=== PATIENT | female | born 1995 | race Caucasian/White ===

== ENCOUNTER 2017-08-25 08:52 | Emergency (ER) | payer MEDICAID ==
[~2017-08-25] VITALS: Ht 162.6 cm; Wt 73.8 kg
[2017-08-25 08:54] VITALS: BP 115/76
[2017-08-25] MEDS ORDERED: HYDROcodone/APAP 5/325 TABLET ONE (09:40)
[2017-08-25] MEDS ORDERED: HYDROcodone/APAP 5/325 TABLET PO ONE (10:00)
== END 2017-08-25 09:54 | disposition home or self-care (01) ==
LOC: ED 09:47
DX: H60.501 Unspecified acute noninfective otitis externa, right ear (principal)
CPT/HCPCS: 99283

== ENCOUNTER 2017-08-27 14:49 | Outpatient (CLI) | payer MEDICAID ==
[~2017-08-27] VITALS: Ht 162.6 cm; Wt 73.6 kg
[2017-08-27 15:31] LABS: MICROSCOPIC INDICATED
== END 2017-08-27 16:42 | disposition home or self-care (01) ==
LOC: LDOP 14:49
PROVIDERS: ATTEND Obstetrics & Gynecology
DX: O26.893 Other specified pregnancy related conditions, third trimester (principal); R10.9 Unspecified abdominal pain; Z3A.33 33 weeks gestation of pregnancy
CPT/HCPCS: 59025; 81001; 87086; 99201; G0463

== ENCOUNTER 2017-08-28 20:18 | Emergency (ER) | payer MEDICAID ==
[~2017-08-28] VITALS: Ht 162.6 cm; Wt 73.6 kg
[2017-08-28 21:11] VITALS: BP 116/69
[2017-08-28 21:32] LABS: MEAN CORPUSCULAR HEMOGLOBIN 21.9 pg (27.0-34.8); MEAN CORPUSCULAR HGB CONC 31.4 g/dL (32.4-35.8); MEAN CORPUSCULAR VOLUME 69.9 fL (80-100); MEAN PLATELET VOLUME 7.7 fL (7.4-10.4); PLATELET COUNT 288 x10^3/uL (130-400); RED BLOOD COUNT 4.06 x10^6/uL (3.82-5.3); RED CELL DISTRIBUTION WIDTH 18.3 % (9.6-15.2)
[2017-08-28 22:03] LABS: MICROSCOPIC INDICATED
[2017-08-28 22:54] LABS: AMPHETAMINE SCREEN, URINE Negative (Negative); BARBITURATE SCREEN, URINE Negative (Negative); BENZODIAZEPINE SCREEN, URINE Negative (Negative); CANNABINOID SCREEN, URINE Negative (Negative); COCAINE SCREEN, URINE Negative (Negative); METHADONE SCREEN, URINE Negative (Negative); OPIATE SCREEN, URINE Negative (Negative)
== END 2017-08-28 20:19 | disposition home or self-care (01) ==
LOC: ED 20:18
DX: Z02.9 Encounter for administrative examinations, unspecified (principal)
CPT/HCPCS: 36415; 80307; 81001; 85027; 86592; 86703; 86762; 86900; 87086; 87340; 87899; G0435

== ENCOUNTER 2017-08-28 21:03 | Outpatient (CLI) | payer MEDICAID ==
[2017-08-28] MEDS ORDERED: ACETAMINOPHEN 325 MG TABLET ONE (21:53)
[2017-08-28] MEDS ORDERED: ACETAMINOPHEN 325 MG TABLET PO ONE (22:00)
== END 2017-08-29 00:05 | disposition home or self-care (01) ==
LOC: LDOP 21:03
PROVIDERS: ATTEND Obstetrics & Gynecology
DX: O26.893 Other specified pregnancy related conditions, third trimester (principal); R10.9 Unspecified abdominal pain; Z3A.32 32 weeks gestation of pregnancy
CPT/HCPCS: 36415; 59025; 76805; 80307; 81001; 85027; 86592; 86703; 86762; 86900; 87086; 87340; 87899; 99211; G0435; G0463